=== PATIENT | female | born 2000 | race American Indian/Alaskan Native ===

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

== ENCOUNTER 2019-11-20 14:39 | Emergency (ER) | payer MEDICAID, OTHER | END 2019-11-20 14:48 | disposition left against medical advice (07) | LOC: DL.ED 14:39 | DX: Z53.21 Procedure and treatment not carried out due to patient leaving prior to being seen by health care provider (principal) ==

== ENCOUNTER 2019-11-20 16:58 | Emergency (ER) | payer MEDICAID ==
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
[2019-11-20 17:31] VITALS: BP 145/60; PULSE 78
[2019-11-20 17:45] LABS: ANION GAP 14.6; CHLORIDE,CL 98 mmol/L (101-111); SODIUM,NA 136 mmol/L (135-145)
[2019-11-20 17:48] LABS: ACETAMINOPHEN < 10 ug/mL
[2019-11-20] MEDS ORDERED: Ketorolac 30 MG/ML SDV IVPUSH ONE (18:05)
[2019-11-20] MEDS ORDERED: Ondansetron 4 MG/2 ML SDV IV ONE (18:06)
[2019-11-20] MEDS ORDERED: Iopamidol 612 MG/ML 100 ML Bottle IVPUSH ONE (18:06)
[2019-11-20] MEDS ORDERED: metroNIDAZOLE 250 MG Tab PO ONE (18:10)
[2019-11-20] MEDS ORDERED: diphenhydrAMINE 50 MG/ML SDV IVPUSH ONE (19:06)
[2019-11-20] MEDS ORDERED: LORazepam 2 MG/ML Syringe IVPUSH ONE (19:39)
[2019-11-20] MEDS ORDERED: Metoclopramide 10 MG/2 ML SDV IVPUSH ONE (19:50)
[2019-11-20] MEDS ORDERED: Dicyclomine 20 MG/2 ML SDV IM ONE (19:59)
== END 2019-11-21 00:10 | disposition home or self-care (01) ==
LOC: DL.ED 16:58
DX: F15.10 Other stimulant abuse, uncomplicated (principal); F12.188 Cannabis abuse with other cannabis-induced disorder; R10.84 Generalized abdominal pain
CPT/HCPCS: 36415; 74177; 80053; 80305; 80320; 80329; 81001; 81025; 82150; 83605; 83690; 85025; 87040; 87086; 96372; 96374; 96375; 99284; A9270; J0500; J1200; J1885; J2060; J2405; J2765; Q9967; G0480

== ENCOUNTER 2023-12-21 23:16 | Emergency (ER) | payer MEDICAID ==
[2023-12-21 23:36] VITALS: BP 130/90; PULSE 87
[2023-12-21] MEDS ORDERED: Sodium Chloride 0.9% 10 ML Syringe FLUSH PRN (23:37)
[2023-12-21] MEDS ORDERED: Sodium Chloride 0.9% 1,000 ML IV ONE (23:37)
[2023-12-21] MEDS ORDERED: Ondansetron 4 MG/2 ML SDV IVPUSH ONE (23:38)
[2023-12-21] MEDS ORDERED: Promethazine 25 MG/ML SDV IM ONE (23:38)
[2023-12-22] MEDS ORDERED: LORazepam 2 MG/ML SDV IVPUSH ONE (00:04)
[2023-12-22] MEDS ORDERED: Haloperidol Lactate 5 MG/ML SDV IVPUSH ONE (00:10)
[2023-12-22] MEDS ORDERED: Take Home: Ondansetron 4 MG Tab.DIS, 5 Tab Pack PO ONE (00:45)
== END 2023-12-22 01:01 | disposition home or self-care (01) ==
LOC: DL.ED 23:16
DX: F41.9 Anxiety disorder, unspecified (principal); R11.2 Nausea with vomiting, unspecified
CPT/HCPCS: 96361; 96372; 96374; 96375; 99283; 99283-25; J1630; J2405; J2550; J7030; Q0162